=== PATIENT | female | born 2000 | race Caucasian/White ===

== ENCOUNTER 2025-01-20 00:14 | Emergency (ER) | payer MEDICAID ==
[~2025-01-20] VITALS: Ht 157.5 cm; Wt 59.0 kg
[2025-01-20 00:29] VITALS: TEMP 36.7; O2SAT 100
[2025-01-20 00:57] LABS: BASOPHILS % 0.2 % (0.0-2.0); EOSINOPHILS % 1.1 % (0.0-5.0); HEMATOCRIT. 32.1 % (36.0-48.0); HEMOGLOBIN. 10.4 g/dL (12.0-16.0); LYMPHOCYTES % 22.4 % (20.0-50.0); MEAN PLATELET VOLUME 10.0 fl (7.4-10.4); MONOCYTES % 6.9 % (2.0-8.0); NEUTROPHILS % 69.4 % (40.0-76.0); PLATELET 226 x1000/uL (130-400); RED BLOOD CELL COUNT 3.60 mill/uL (4.2-5.4); RED CELL DISTRIBUTION WIDTH 14.3 % (11.6-14.6)
[2025-01-20 01:10] LABS: INR 0.9
[2025-01-20 01:16] LABS: CREATININE 0.5 mg/dL (0.6-1.0); UREA NITROGEN BLOOD 6 mg/dL (9-23)
[2025-01-20 01:18] LABS: ASPARTATE AMINOTRANSFERASE 13 IU/L (<34); BILIRUBIN TOTAL 0.3 mg/dL (0.1-1.0); PROTEIN TOTAL 6.4 g/dL (6.0-8.3)
[2025-01-20 01:27] VITALS: BP 129/99; PULSE 93; RESP 20; O2SAT 99
== END 2025-01-20 01:37 | disposition short-term general hospital (02) ==
LOC: ER 00:14
DX: O26.893 Other specified pregnancy related conditions, third trimester (principal); R10.84 Generalized abdominal pain; Z3A.38 38 weeks gestation of pregnancy
CPT/HCPCS: 36415; 76805; 80053; 85025; 86850; 86900; 99285